=== PATIENT | female | born 1995 | race Caucasian/White ===

== ENCOUNTER 2016-07-22 17:51 | Emergency (ER) | payer BC ==
[2016-07-22] MEDS ORDERED: ONDANSETRON 4 MG/2 ML VIAL IVP ONE (18:34)
[2016-07-22] MEDS ORDERED: Sodium Chloride 0.9% 1,000 ML PRIMARY IV ONE (18:34)
[2016-07-22 18:37] VITALS: RESP 20; TEMP 98
--- NOTE | 2016-07-22 18:40 | PDOC ---
Gen Adult / Medical Screen HPI - General Chief Complaint: General Medical Stated Complaint: Spotting/vaginal bleeding with Date Seen by Provider: 07/22/16 Time Seen by Provider: 18:35 Source: POSITIVE: Patient, Spouse Exam Limitations: POSITIVE: No limitations Nurse's Notes Reviewed & Considered: Yes - Indicators Temperature Between 95 and 101 Degrees: Yes Respirations Between 12 and 20: Yes Blood Pressure Between 100-165 (sys) and 60-100 (steven): Yes Pulse Range Between 60-105 (100 for age > 60 years): Yes Severe Pain (Greater than 5/10 Reported): No Chest or Abdominal Pain: No Inability to Walk: No Pt Reports Active High Risk Cond. (TB/Hepatitis/HIV/Chemo): No Abnormal Mental Status: No - History of Present Illness Initial Comments: Patient comes in today with vaginal bleeding. Patient is approximately 8 weeks gestation with her second . She lost the first approximately 8 weeks with similar symptoms. She comes in today tearful, denying any abdominal pain or cramping, she does have some mild dysuria, no headache, no chest pain, no cough, no shortness of breath, no nausea vomiting or diarrhea, no fever chills or sweats. Symptoms began approximately one half hour ago. Prior to initiation of symptoms she was without complaint. Body Location Affected: REPORTS: Abdomen Timing: REPORTS: Abrupt Duration: 1/2 hour Similar Symptoms Previously: Yes (previous miscarriage in April 2016) Recent Care Received: REPORTS: Denies Any Prior Injuries Related to Current Complaint?: No - Patient Home Medications Home Medications: Home Medications Vits W-Ca,Fe,FA(<1Mg) [] 1 tab PO DAILY 07/22/16 - Patient Allergies Allergies/Adverse Reactions: Allergies Allergy/AdvReac Type Severity Reaction Status Date / Time No Known Allergies Allergy Verified 07/22/16 18:24 Past Medical History - heen HEENT History: Denies History Cardiovascular History: Denies History Respiratory History: Denies History Gastrointestinal History: Denies History Genitourinary History: Denies History Endocrine History: Denies History Musculoskeletal History: Denies History Prosthesis or Implant: No Neurological History: Denies History Blood Disorders: Denies History Psychiatric History: Depression, Anxiety Disorders History of Sexually Transmitted Diseases: No Female Reproductive History: Other (please comment) Additional Female Reproductive History: Pt reports had a miscarriage in Apr 2016. Cancer History: Denies History In Past Year Been Physically Harmed or Verbally Threatened: No History of MDRO: No History of Other Communicable Diseases: No Tobacco Use: Never Smoker Alcohol Use: None Substance Use Type: None Previous Surgical History: No Significant Family History: No pertinent family hx ROS - Limitations ROS Limitations: No Limitations Constitution: REPORTS: Denies Symptoms Cardiovascular: REPORTS: Denies Cardiac Symptoms Respiratory: REPORTS: Denies Resp Symptoms Neurological: REPORTS: Denies Neuro Symptoms Gastrointestinal: REPORTS: Abdominal Pain (Complaints of mild pain in the left upper quadrant) Endocrine: REPORTS: Denies Symptoms Musculoskeletal: REPORTS: Back Pain Genitourinary: REPORTS: Discharge (Light pink vaginal discharge), Dysuria Eyes: REPORTS: Denies Symptoms ENT: REPORTS: Denies Symptoms Skin: REPORTS: Denies Skin Symptoms Lympathic: REPORTS: Denies Lympathic Symptoms Immunologic: POSITIVE: Denies Symptoms Psychiatric: POSITIVE: Denies Psych Symptoms Gen Adult/Medical Screen Exam - General Appearance General Appearance: POSITIVE: Alert, Cooperative, No Evidence of Trauma, Anxious , Mild Distress - HEENT HEENT: POSITIVE: Head Inspection Nml, Eyes Inspection Nml, Ears Inspection Nml, Nose Inspection Nml, PERRL, EOMI - Pupils Pupil Size: 5 mm: Bilateral - Neck Neck: POSITIVE: Normal Inspection, Thyroid Normal - Respiratory Respiratory: POSITIVE: No Respiratory Distress, Breath Sounds Normal, Chest Non- Tender - Cardiovascular Cardiovascular: POSITIVE: Regular Rate & Rhythm, No Murmur, No Gallop, PMI Normal - Abdomen Abdomen: Soft: (All Quadrants), Normal Bowel Sounds: (All Quadrants), Tenderness Noted: (LUQ) - Back Back: POSITIVE: Normal Inspection - Neurological / Psychological Mental Status: POSITIVE: Tearful Orientation: POSITIVE: Oriented x 3 - Skin Skin: POSITIVE: Normal Color, Warm, Dry, No Rash - Extremities Extremity: Non-Tender: (All Extremities), Normal ROM: (All Extremities), Normal Inspection: (All Extremities), Pelvis Stable: (All Extremities) Gen Adlt/Medical Scrn Progress - Results Reviewed by me Xrays/CTs/US Reviewed by me: Yes Discussed with Radiologist: Yes Lab Results Reviewed: Yes Lab Results:: Laboratory Results 07/22/16 07/22/16 Range/Units 18:34 18:53 WBC 6.74 (4.8-10.8) 10^3/uL RBC 4.86 (4.20-5.40) 10^6/uL Hgb 13.7 (12.0-16.0) g/dL Hct 40.2 (37.0-47.0) % MCV 82.7 (81-99) FL MCH 28.2 (27-31) PG MCHC 34.1 (33-37) g/dL RDW Std Deviation 39.5 (39-50) fL RDW Coeff of Tram 13.1 (11.5-14.5) % Plt Count 284 (140-350) 10*3/uL MPV 10.3 (7.4-12.2) FL Immature Gran % (Auto) 0.1 (0-5) % Neut % (Auto) 60.8 (50-80) % Lymph % (Auto) 30.1 (10-50) % [place] % (Auto) 6.2 (5-15) % Eos % (Auto) 2.2 (0-8) % Baso % (Auto) 0.6 (0-1) % Immature Gran # (Auto) 0.01 10*3/UL Neut # (Auto) 4.09 10*3/UL Lymph # (Auto) 2.03 10*3/uL [place] # (Auto) 0.42 (0.3-0.8) 10*3/UL Eos # (Auto) 0.15 10*3/UL Baso # (Auto) 0.04 10*3/UL WBC Morphology Comment Normal morphology (NORM) Plt Morphology Comment Normal morphology (NORM) RBC Morph Comment Normal morphology (NORM) Magnesium 2.0 (1.6-2.4) mg/dL HCG, Quant 1267.3 mIU/ML Ur Collection Type Void Urine Color Yellow Urine Clarity Clear (CLEAR) Urine pH 5.5 (5.0-8.5) Ur Specific [place] 1.010 (1.005-1.030) Urine Protein Negative (NEG) mg/dl Urine Glucose (UA) Negative (NEG) mg/dL Urine Ketones Negative (NEG) Urine Occult Blood Trace-intact H (NEG) Urine Nitrate Negative (NEG) Urine Bilirubin Negative (NEG) Urine Urobilinogen 0.2 (0.2) EU/dL Ur Leukocyte Esterase Negative (NEG) Urine RBC 0-2 (NONE) /hpf Urine WBC None (NONE) Ur Squamous Epith Cells None (NONE) Ur Renal Epithelial Cell None (NONE) Urine Crystals None Urine Bacteria None (NONE) Urine Casts None (NONE) Urine Mucus None (NONE) Urine Trichomonas None (NONE) Urine Yeast None (NONE) Ur Culture Indicated? Culture not set Blood Type O POSITIVE - Patient's Progress Pain Medication Addressed: POSITIVE: Not Applicable Re-Examine Time: 21:32 Status: POSITIVE: Unchanged MDM / ED Course: Patient was evaluated, an IV started, blood drawn and sent to the lab for studies ultrasound was obtained. Findings: CBC is within normal limits. Urinalysis is negative. Ultrasound shows gestational sac which measures 6 weeks and 2 days no pole is observed. Blood type is O+. Assessment: Probable miscarriage. Plan: Discharge home, follow-up with Dr. Castaneda, return to emergency room if heavy bleeding, increased pain, or other concerns. - Consult Consult (If Yes, Name of Consulting MD & Time Called): Yes (Dr. Castaneda [phone]) Consulting MD will see pt:: POSITIVE: In Office Counseled: POSITIVE: Patient, Family, RE: Lab Results, RE: Radiology Results, RE : DX, RE: Need for F/U Patient Care Time - Estimated PCT Patient Care Time (In Minutes): 45 Vital Signs - Recent Vital Signs Vital Signs: Vital Signs (Last 8 hours) Temp Pulse Resp BP Pulse Ox 07/22/16 18:00 98.0 F 92 20 148/78 96 - VS Reviewed Vital Signs Reviewed: Yes Discharge Clinical Impression: Vaginal bleeding, Threatened in early Discharge Disposition: Discharged to Home Condition: Stable Patient Instructions Given at Discharge: Threatened Miscarriage (ED)
[2016-07-22 18:57] LABS: BASOPHILS # (AUTO) 0.04 10*3/UL; BASOPHILS % (AUTO) 0.6 % (0-1); EOSINOPHILS # (AUTO) 0.15 10*3/UL; EOSINOPHILS % (AUTO) 2.2 % (0-8); HEMATOCRIT 40.2 % (37.0-47.0); HEMOGLOBIN 13.7 g/dL (12.0-16.0); LYMPHOCYTES # (AUTO) 2.03 10*3/uL; MEAN CORPUSCULAR HEMOGLOBIN 28.2 PG (27-31); MEAN CORPUSCULAR HGB CONC 34.1 g/dL (33-37); MEAN CORPUSCULAR VOLUME 82.7 FL (81-99); MEAN PLATELET VOLUME 10.3 FL (7.4-12.2); MONOCYTES # (AUTO) 0.42 10*3/UL (0.3-0.8); MONOCYTES % (AUTO) 6.2 % (5-15); NEUTROPHILS # (AUTO) 4.09 10*3/UL; NEUTROPHILS % (AUTO) 60.8 % (50-80); RED BLOOD COUNT 4.86 10^6/uL (4.20-5.40)
[2016-07-22 18:58] LABS: BILIRUBIN,URINE NEGATIVE (NEG); COLOR,URINE YELLOW; GLUCOSE, URINE (UA) NEGATIVE (NEG); NITRATE,URINE NEGATIVE (NEG); OCCULT BLOOD,URINE Trace-intact (NEG); PH,URINE 5.5 (5.0-8.5); PROTEIN,URINE NEGATIVE (NEG); UROBILINOGEN,URINE 0.2 EU/dL (0.2)
[2016-07-22 18:59] LABS: PLATELET MORPHOLOGY COMMENT NORMAL MORPHOLOGY (NORM); RBC MORPHOLOGY COMMENT NORMAL MORPHOLOGY (NORM); WBC MORPHOLOGY COMMENT NORMAL MORPHOLOGY (NORM)
[2016-07-22 19:04] LABS: CLARITY,URINE CLEAR (CLEAR)
[2016-07-22 19:05] LABS: RBC,URINE 0-2 /hpf; URINE SAMPLE TYPE VOID
--- NOTE | 2016-07-22 20:51 | DI ---
US OB LESS THAN 14 WEEKS,07/22/2016 6:34 PM: Clinical History: Vaginal bleeding Previous Exam: None at this facility. Findings: Multiple transabdominal grayscale and color Doppler sonographic images are obtained through the pelvi s, and demonstrate a small gestational sac within the fundal portion of the endometrium. The mean gestational sac diameter corresponds with an estimated gestational age of approximately 6 we eks 2 days. The urinary bladder is unremarkable. There are normal bilateral ovaries with preserved Doppler flow. Impression: Cystic area within the fundal endometrium most likely representing an early gestational sac. If this is a gestational sac, and measures approximately 6 weeks 2 days.
== END 2016-07-22 21:50 | disposition home or self-care (01) ==
LOC: ER 17:51
DX: O20.0 Threatened abortion (principal); Z3A.01 Less than 8 weeks gestation of pregnancy; R10.12 Left upper quadrant pain
CPT/HCPCS: 76801; 81001; 81003; 83735; 84702; 85025; 86900; 86901; 99283; J2405; J7030

== ENCOUNTER → 2016-08-17 | Outpatient (CLI) | payer BC ==
--- NOTE | 2016-08-17 14:25 | DI ---
US PELVIC LIMITED (NON-OB), US PELVIC-TRANSVAGINAL,08/17/2016 9:57 AM: Clinical History: Miscarriage and threatened early Previous Exam: July 22, 2016. Findings: Multiple transabdominal and endovaginal grayscale and color Doppler sonographic images are obtained t hrough the pelvis, and demonstrate retroverted uterus measuring 8.3 x 5.4 x 4.7 cm with an endometria l stripe measuring 9 mm. The right ovary measures 3.1 x 2.4 x 3.7 cm and the left ovary measures 4.7 x 2.9 x 3.3 cm with ly l venous and arterial Doppler waveforms. Multiple maturing follicles are identified. There is no free fluid. There is a hypoechoic 2.6 x 2.5 x 2.3 cm complex cyst within the right ovary with some peripheral flow, but no flow within the complex hypoechogenicity. Impression: 1. Hypoechoic 2.6 x 2.5 x 2.3 cm complex left ovarian cysts most likely representing a hemorrhagic cy st. Consider followup imaging in 6-10 weeks to document resolution.
== END ==
LOC: US 09:49
PROVIDERS: ATTEND Obstetrics & Gynecology
DX: N83.202 Unspecified ovarian cyst, left side (principal)
CPT/HCPCS: 76830; 76857

== ENCOUNTER → 2016-08-19 | Outpatient (CLI) | payer BC | LOC: MOB LAB 14:23 | PROVIDERS: ATTEND Obstetrics & Gynecology | DX: Z72.51 High risk heterosexual behavior (principal) | CPT/HCPCS: 87491; 87591 ==

== ENCOUNTER → 2016-08-20 | Outpatient (CLI) | payer BC ==
--- NOTE | 2016-08-20 14:28 | DI ---
XR CXR 2VW PA/LAT,08/20/2016 1:54 PM: Clinical History: Cough Previous Exam: None at this facility. Findings: PA and lateral views of the chest are obtained, and demonstrate increased interstitial markings throu ghout the lungs. There is some airspace disease within the right lung base. The cardiomediastinal isma houette is normal. Bony thorax is also unremarkable. Impression: Increased interstitial markings diffusely throughout both lung lord is most consistent with a viral illness. Cannot rule out the possibility of another interstitial process such as pulmonary edema.
== END ==
LOC: MOB RAD 13:59
PROVIDERS: ATTEND Physician Assistant
DX: R05 Cough (principal); R06.02 Shortness of breath; R11.2 Nausea with vomiting, unspecified
CPT/HCPCS: 71020

== ENCOUNTER → 2016-08-28 | Outpatient (CLI) | payer BC ==
[2016-08-28 16:15] LABS: BLOOD UREA NITROGEN 8 mg/dL (7-22); BUN/CREATININE RATIO 13.33 (6-20); CALCIUM 9.4 mg/dL (8.7-10.7); EST GLOMERULAR FILTRATION > 60 (>60 ml/min/1.73m(2)); SERUM ALBUMIN 4.2 g/dL (3.5-4.8)
[2016-08-28 16:29] LABS: HIV ANTIBODY NEGATIVE (N); HIV-1 P24 ANTIGEN NEGATIVE (N)
[2016-08-28 16:50] LABS: HCG,QUANTITATIVE < 2.39 mIU/ML
[2016-09-02 18:27] LABS: CHOL/HDL RATIO 4.22 RATIO (0-4.0); LDL CHOLESTEROL,CALCULATED 84.2 mg/dL
== END ==
LOC: MOB LAB 14:53
PROVIDERS: ATTEND Obstetrics & Gynecology
DX: O03.9 Complete or unspecified spontaneous abortion without complication (principal); Z20.9 Contact with and (suspected) exposure to unspecified communicable disease; E66.9 Obesity, unspecified
CPT/HCPCS: 36415; 80053; 80061; 84443; 84702; 86703; 86780

== ENCOUNTER 2018-12-13 18:05 | Observation (INO) ==
[2018-12-13] MEDS ORDERED: LEVALBUTEROL HCL 1.25 MG/3 ML NEB ONE (18:15)
[2018-12-13] MEDS ORDERED: LORazepam 2 MG/1 ML VIAL IVP ONE (18:16)
[2018-12-13] MEDS ORDERED: Sodium Chloride 0.9% 1,000 ML PRIMARY IV ONE ×2 (18:16→19:32)
[2018-12-13] MEDS ORDERED: ONDANSETRON 4 MG/2 ML VIAL IVP ONE (18:16)
[2018-12-13] MEDS ORDERED: KETOROLAC 15 MG/1 ML VIAL IVP ONE (18:16)
[2018-12-13 18:24] LABS: BASOPHILS # (AUTO) 0.04 10*3/UL; BASOPHILS % (AUTO) 0.2 % (0-1); EOSINOPHILS # (AUTO) 0.11 10*3/UL; EOSINOPHILS % (AUTO) 0.7 % (0-8); Hematocrit [HCT] 42.9 % (37.0-47.0); Hemoglobin [HGB] 14.1 g/dL (12.0-16.0); LYMPHOCYTES # (AUTO) 1.16 10*3/uL; MEAN CORPUSCULAR HGB CONC 32.9 g/dL (33-37); MEAN CORPUSCULAR VOLUME 83.5 FL (81-99); MEAN PLATELET VOLUME 10.9 FL (7.4-12.2); MONOCYTES # (AUTO) 0.49 10*3/UL (0.3-0.8); MONOCYTES % (AUTO) 3.1 % (5-15); NEUTROPHILS # (AUTO) 14.23 10*3/UL; NEUTROPHILS % (AUTO) 88.7 % (50-80); PLATELET MORPHOLOGY COMMENT NORMAL MORPHOLOGY (NORM); RBC MORPHOLOGY COMMENT NORMAL MORPHOLOGY (NORM); RED BLOOD COUNT 5.14 10^6/uL (4.20-5.40); WBC MORPHOLOGY COMMENT NORMAL MORPHOLOGY (NORM)
[2018-12-13] MEDS ORDERED: LEVALBUTEROL HCL 1.25 MG/3 ML NEB SCH (18:30)
[2018-12-13 18:37] LABS: BLOOD UREA NITROGEN 8 mg/dL (7-22); BUN/CREATININE RATIO 11.42 (6-20); SERUM ALBUMIN 4.8 g/dL (3.5-4.8)
[2018-12-13 19:02] LABS: Erythrocyte Sediment Rate 4 MM/HR (0-20)
[2018-12-13] MEDS ORDERED: DEXAMETHASONE PF 10 MG/1 ML VIAL IVP ONE (20:22)
[2018-12-13] MEDS ORDERED: Magnesium Sulfate 2gm (Premix) 2 GM/50 ML BAG IV ONE (20:22)
[2018-12-13] MEDS ORDERED: ALBUTEROL SULFATE 2.5 MG/3 ML NEB PRN (22:41)
[2018-12-13] MEDS ORDERED: CALCIUM CARBONATE 500 MG (TUMS) CHEWABLE TABLET PO PRN (22:41)
[2018-12-13] MEDS ORDERED: LIDOCAINE W/ SODIUM BICARB 0.5 ML SYR SUBD PRN (22:41)
[2018-12-13] MEDS ORDERED: ONDANSETRON 4 MG/2 ML VIAL IVP PRN (22:41)
[2018-12-13] MEDS: methylPREDNISolone 125 MG/2 ML VIAL IVP SCH (23:21)
[2018-12-14] MEDS: diphenhydrAMINE 25 MG CAPSULE PO PRN ×2 (00:21→21:02)
[2018-12-14] MEDS: IPRATROPIUM/ALBUTEROL SULFATE 3 ML NEB NEB SCH ×4 (01:18→18:36)
[2018-12-14] MEDS: GUAIFENESIN/CODEINE SYRUP 100 MG/ 10 MG/ 5 ML UD CUP PO PRN ×3 (02:19→21:01)
[2018-12-14] MEDS: methylPREDNISolone 125 MG/2 ML VIAL IVP SCH ×4 (04:38→23:56)
[2018-12-14 04:51] LABS: BASOPHILS # (AUTO) 0.01 10*3/UL; BASOPHILS % (AUTO) 0.1 % (0-1); EOSINOPHILS # (AUTO) 0.01 10*3/UL; EOSINOPHILS % (AUTO) 0.1 % (0-8); Hematocrit [HCT] 42.8 % (37.0-47.0); Hemoglobin [HGB] 13.7 g/dL (12.0-16.0); LYMPHOCYTES # (AUTO) 0.83 10*3/uL; MEAN CORPUSCULAR VOLUME 83.8 FL (81-99); MONOCYTES # (AUTO) 0.03 10*3/UL (0.3-0.8); MONOCYTES % (AUTO) 0.2 % (5-15); NEUTROPHILS # (AUTO) 12.02 10*3/UL; RED BLOOD COUNT 5.11 10^6/uL (4.20-5.40)
[2018-12-14 04:52] LABS: PLATELET MORPHOLOGY COMMENT NORMAL MORPHOLOGY (NORM); RBC MORPHOLOGY COMMENT NORMAL MORPHOLOGY (NORM); WBC MORPHOLOGY COMMENT NORMAL MORPHOLOGY (NORM)
[2018-12-14] MEDS: Prenatal Multivitamin Tab 1 TAB TAB PO SCH (08:38)
[2018-12-14] MEDS: PANTOPRAZOLE IV 40 MG VIAL IVP SCH (08:39)
[2018-12-14] MEDS: ACETAMINOPHEN 325 MG TABLET PO PRN ×2 (08:45→19:01)
[2018-12-14] MEDS: BREO ELLIPTA INH SCH (08:50)
[2018-12-14] MEDS ORDERED: PRENATAL VITS W CA FE FA PO SCH (09:00)
[2018-12-14] MEDS ORDERED: Influenza 19-20 Vaccine (6mo+) 60 MCG/0.5 ML SYRINGE IM ONE (19:50)
[2018-12-15] MEDS: IPRATROPIUM/ALBUTEROL SULFATE 3 ML NEB NEB SCH ×3 (01:51→12:53)
[2018-12-15] MEDS: methylPREDNISolone 125 MG/2 ML VIAL IVP SCH (05:17)
[2018-12-15 06:20] LABS: HEMOGLOBIN A1C 5.82 % (4.2-6.0)
[2018-12-15] MEDS: BREO ELLIPTA INH SCH ×2 (06:57→09:16)
[2018-12-15 07:02] VITALS: RESP 18
[2018-12-15 08:34] VITALS: BP 134/68; TEMP 98; O2SAT 92
[2018-12-15] MEDS ORDERED: PANTOPRAZOLE 40 MG TABLET PO SCH (10:00)
[2018-12-15] MEDS ORDERED: predniSONE Tab 20 MG TAB PO SCH (10:00)
[2018-12-15] MEDS ORDERED: Influenza 19-20 Vaccine (6mo+) 60 MCG/0.5 ML SYRINGE IM ONE (10:04)
[2018-12-15] MEDS: Prenatal Multivitamin Tab 1 TAB TAB PO SCH (10:09)
[2018-12-15] MEDS: PANTOPRAZOLE IV 40 MG VIAL IVP SCH (10:14)
[2018-12-15] MEDS ORDERED: ALBUTEROL SULFATE 8.5 GM HFA INHALER INH ONE (11:45)
== END 2018-12-15 13:08 | disposition home or self-care (01) ==
LOC: MED/SURG 18:05 → ER 18:05 → MED/SURG 22:33
PROVIDERS: ADMIT Family Medicine; ATTEND Family Medicine